=== PATIENT | female | born 1995 | race Caucasian/White ===

== ENCOUNTER 2019-07-30 15:35 | Emergency (ER) | payer OTHER ==
[2019-07-30 17:03] LABS: Basophils % 0.5 % (0-1.3)
[2019-07-30 17:05] LABS: Potassium 3.7 mmol/L (3.5-5.1)
[2019-07-30 17:13] LABS: Hematocrit 41.4 % (36.0-45.0); MPV 9.6 fL (7.6-11.3); RBC Red Blood Cell Count 4.71 M/uL (3.86-4.86)
[2019-07-30 17:23] LABS: Urine Bacteria >50 /HPF (<20); Urine RBC <5 /HPF (NONE SEEN)
[2019-07-30 17:24] LABS: Urine Culture Reflex Order REFLEXED; Urine Mucus MOD /HPF (NONE SEEN)
--- NOTE | 2019-07-30 17:32 | EDPHYS ---
Physician Documentation [facility] Name: Loulou Linton Age: 23 yrs Sex: Female : 1995 Arrival Date: 07/30/2019 Time: 15:40 Bed 14 Private MD: ED Physician Magnus Galeano HPI: 07/29 16:01 This 23 yrs old Female presents to ER via Ambulatory with complaints of Dehydrated, pm1 Weakness, possible . 16:01 The patient presents to the emergency department with weakness of the entire body, pm1 generalized weakness, low energy. Onset: The symptoms/episode began/occurred 1 week(s) ago. Context: occurred at home. Associated signs and symptoms: Pertinent negatives: altered mental status, dizziness, fever, headache, nausea, syncope, near-syncope, vomiting. Severity of symptoms: in the emergency department the symptoms have improved. The patient has not experienced similar symptoms in the past. The patient has not recently seen a physician, out of town. Patient presents to the ER with complaints of generalized weakness and low energy. She believes that she might be 16 weeks . She took a home test last week and it came back positive. Today the patient was walking in the kitchen and slipped on a wet spot, resulting in an small abrasion to left arguello. No pain elsewhere. No headache, head injury, nausea, or vomiting. Patient denies any dizziness, chest pain, near-syncope, or syncope to me. After she slipped she felt low in energy and just sat on the floor and was brought to the ER by her family for evaluation. Patient has not been drinking well today and feels that she is dehydrated. Historical: - Allergies: 15:52 SHELLFISH; ll1 - PSHx: 15:52 neck surgery-age 17, jaw surgery-19; ll1 - Immunization history:: Flu vaccine is not up to date. - Social history:: Smoking status: Patient denies any tobacco usage or history of. Patient/guardian denies using alcohol, street drugs, tobacco products. ROS: 16:01 Eyes: Negative for injury, pain, redness, and discharge. pm1 16:01 ENT: Negative for injury, pain, and discharge, Neck: Negative for injury, pain, and swelling, Cardiovascular: Negative for chest pain, palpitations, and edema, Respiratory: Negative for shortness of breath, cough, wheezing, and pleuritic chest pain, Abdomen/GI: Negative for abdominal pain, nausea, vomiting, diarrhea, and constipation, Back: Negative for injury and pain, : Negative for injury, bleeding, discharge, and swelling, MS/Extremity: Negative for injury and deformity. 16:01 Neuro: Negative for headache, weakness, numbness, tingling, and seizure. 16:01 Constitutional: Positive for fatigue, Poor PO intake today, Negative for fever. 16:01 Skin: Positive for abrasion(s), of the left arguello. Exam: 16:01 Constitutional: This is a well developed, well nourished patient who is awake, alert, pm1 and in no acute distress. Head/Face: Normocephalic, atraumatic. Chest/axilla: Normal chest wall appearance and motion. Nontender with no deformity. No lesions are appreciated. Cardiovascular: Regular rate and rhythm with a normal S1 and S2. No gallops, murmurs, or rubs. Normal PMI, no JVD. No pulse deficits. Respiratory: Lungs have equal breath sounds bilaterally, clear to auscultation and percussion. No rales, rhonchi or wheezes noted. No increased work of breathing, no retractions or nasal flaring. Abdomen/GI: Soft, non-tender, with normal bowel sounds. No distension or tympany. No guarding or rebound. No evidence of tenderness throughout. Back: No spinal tenderness. No costovertebral tenderness. Full range of motion. Skin: Warm, dry with normal turgor. Normal color with no rashes, no lesions, and no evidence of cellulitis. MS/ Extremity: Pulses equal, no cyanosis. Neurovascular intact. Full, normal range of motion. 16:01 Neuro: Exam negative for acute changes, Orientation: is normal, Mentation: is normal, Motor: is normal, moves all fours, Gait: is steady, at a normal pace, without difficulty. Vital Signs: 15:48 BP 117 / 84; Pulse 87; Resp 17; Temp 97.8; Pulse Ox 100% ; Weight 49.9 kg; Height 5 ft. ll1 1 in. (154.94 cm); Pain 3/10; 15:48 Body Mass Index 20.78 (49.90 kg, 154.94 cm) ll1 MDM: 15:54 Patient medically screened. pm1 17:30 Data reviewed: vital signs. Data interpreted: Pulse oximetry: on room air is 100 %. pm1 Interpretation: normal. 17:31 Counseling: I had a detailed discussion with the patient and/or guardian regarding: the pm1 historical points, exam findings, and any diagnostic results supporting the discharge/admit diagnosis, lab results, the need for outpatient follow up, to return to the emergency department if symptoms worsen or persist or if there are any questions or concerns that arise at home. 07/29 15:59 Order name: Basic Metabolic Panel; Complete Time: 17:05 pm1 07/29 15:59 Order name: CBC with Diff; Complete Time: 17:30 pm1 07/29 15:59 Order name: Urine Microscopic Only; Complete Time: 17:30 pm1 07/29 16:52 Order name: Quantitative Hcg; Complete Time: 17:30 pm1 07/29 17:26 Order name: Urine Culture [facility] 07/29 17:48 Order name: Urine Dipstick--Ancillary (enter results) em 07/29 15:59 Order name: Urine Test (obtain specimen); Complete Time: 16:55 pm1 07/29 15:59 Order name: IV Saline Lock; Complete Time: 16:55 pm1 07/29 15:59 Order name: Labs collected and sent; Complete Time: 16:55 pm1 07/29 15:59 Order name: NPO; Complete Time: 16:55 pm1 07/29 15:59 Order name: Urine Dipstick-Ancillary (obtain specimen); Complete Time: 16:55 pm1 07/29 17:48 Order name: Urine --Ancillary (enter results) em1 Administered Medications: 17:42 Drug: Rocephin 1 grams Route: IV; Rate: calculated rate; Site: right antecubital; vc 18:00 Follow up: Response: No adverse reaction; IV Status: Completed infusion; IV Intake: 20mlvc Disposition: 07/30 04:30 Co-signature as Attending Physician, Magnus Galeano MD I agree with the assessment and kdr plan of care. Disposition: 07/30/19 17:32 Discharged to Home. Impression: Urinary tract infection, site not specified. - Condition is Stable. - Discharge Instructions: Urinary Tract Infection, Adult. - Prescriptions for Macrobid 100 mg Oral Capsule - take 1 capsule by ORAL route every 12 hours for 10 days; 20 capsule. - Medication Reconciliation Form, Thank You Letter, Antibiotic Education, Prescription Opioid Use form. - Follow up: Emergency Department; When: As needed; Reason: Worsening of condition. Follow up: Private Physician; When: 2 - 3 days; Reason: Recheck today's complaints, Continuance of care, Re-evaluation by your physician. - Problem is new. - Symptoms have improved. Signatures: Dispatcher [employer] EDMS Magnus Galeano MD MD kdr Joe Silva COOKING CHEF COOKING CHEF pm1 Nani Guadrado RN RN Willian Morales RN RN ll1 Corrections: (The following items were deleted from the chart) 07/29 18:08 17:32 07/30/2019 17:32 Discharged to Home. Impression: Urinary tract infection, site vc not specified. Condition is Stable. Forms are Medication Reconciliation Form, Thank You Letter, Antibiotic Education, Prescription Opioid Use. Follow up: Emergency Department; When: As needed; Reason: Worsening of condition. Follow up: Private Physician; When: 2 - 3 days; Reason: Recheck today's complaints, Continuance of care, Re-evaluation by your physician. Problem is new. Symptoms have improved. pm1
--- NOTE | 2019-07-30 17:32 | ER ---
Nurse's Notes [facility] Name: Loulou Linton Age: 23 yrs Sex: Female : 1995 Arrival Date: 07/30/2019 Time: 15:40 Bed 14 Private MD: Diagnosis: Urinary tract infection, site not specified Presentation: 07/29 15:48 Chief complaint: Patient states: States she felt dizzy, near syncope today. Slipped on ll1 wet ground. States she hasn't drank well today, but ate a little. Found out she was last week. 14-16 weeks she guesses. No vaginal bleeding. G2, P0. Coronavirus screen: Proceed with normal triage. Patient denies a cough. Patient denies shortness of breath or difficulty breathing. Patient denies measured and/or subjective temperature greater than 100.4F prior to today's visit. Patient denies travel on a cruise ship or to a country the [facility] [place]NOTE 2[place] currently lists as an affected area. Patient denies contact with known and/or suspected case of COVID-19. Ebola Screen: Patient denies travel to an Ebola-affected area in the 21 days before illness onset. Initial Sepsis Screen: Does the patient meet any 2 criteria? No. Patient's initial sepsis screen is negative. Risk Assessment: Do you want to hurt yourself or someone else? Patient reports no desire to harm self or others. Onset of symptoms was July 30, 2019. 15:48 Method Of Arrival: Ambulatory ll1 15:48 Acuity: KURT 3 ll1 16:00 Initial Sepsis Screen: Does the patient have a suspected source of infection? No. vc Patient's initial sepsis screen is negative. Triage Assessment: 16:00 General: Appears in no apparent distress. uncomfortable, Behavior is calm, cooperative, vc appropriate for age. Historical: - Allergies: 15:52 SHELLFISH; ll1 - PSHx: 15:52 neck surgery-age 17, jaw surgery-19; ll1 - Immunization history:: Flu vaccine is not up to date. - Social history:: Smoking status: Patient denies any tobacco usage or history of. Patient/guardian denies using alcohol, street drugs, tobacco products. Screenin:00 Abuse screen: Denies threats or abuse. Nutritional screening: No deficits noted. vc Tuberculosis screening: No symptoms or risk factors identified. Fall Risk None identified. Assessment: 16:00 General: Appears in no apparent distress. comfortable, slender, Behavior is calm, vc cooperative, appropriate for age. Pain: Denies pain. Neuro: Level of Consciousness is awake, alert, obeys commands, Oriented to person, place, time, Reports weakness. Cardiovascular: Capillary refill < 3 seconds Patient's skin is warm and dry. Respiratory: Airway is patent Respiratory effort is even, unlabored, Respiratory pattern is regular, symmetrical. GI: No signs and/or symptoms were reported involving the gastrointestinal system. : No signs and/or symptoms were reported regarding the genitourinary system. Derm: Skin is intact, is healthy with good turgor. 17:00 Reassessment: Patient appears in no apparent distress at this time. Patient and/or vc family updated on plan of care and expected duration. Pain level reassessed. Patient is alert, oriented x 3, equal unlabored respirations, skin warm/dry/pink. 17:42 Reassessment: 15 minute shot time prior to discharge. vc 18:00 Reassessment: Patient appears in no apparent distress at this time. Patient and/or vc family updated on plan of care and expected duration. Pain level reassessed. Patient is alert, oriented x 3, equal unlabored respirations, skin warm/dry/pink. Patient denies pain at this time. Vital Signs: 15:48 BP 117 / 84; Pulse 87; Resp 17; Temp 97.8; Pulse Ox 100% ; Weight 49.9 kg; Height 5 ft. ll1 1 in. (154.94 cm); Pain 3/10; 15:48 Body Mass Index 20.78 (49.90 kg, 154.94 cm) ll1 ED Course: 15:40 Patient arrived in ED. bp1 15:51 Triage completed. ll1 15:52 Arm band placed on Patient placed in an exam room, on a stretcher. ll1 15:53 Joe Silva NP is PHCP. pm1 15:53 Magnus Galeano MD is Attending Physician. pm1 16:00 Patient has correct armband on for positive identification. Bed in low position. Call vc light in reach. 16:55 Nani Guardado, COLT is Primary Nurse. vc 18:08 No provider procedures requiring assistance completed. IV discontinued, intact, vc bleeding controlled, No redness/swelling at site. Pressure dressing applied. Administered Medications: 17:42 Drug: Rocephin 1 grams Route: IV; Rate: calculated rate; Site: right antecubital; vc 18:00 Follow up: Response: No adverse reaction; IV Status: Completed infusion; IV Intake: 20mlvc Intake: 18:00 IV: 20ml; Total: 20ml. vc Outcome: 17:32 Discharge ordered by MD. pm1 18:08 Patient left the ED. vc 18:08 Discharged to home ambulatory. vc 18:08 Condition: good 18:08 Discharge instructions given to patient, Instructed on discharge instructions, follow up and referral plans. medication usage, Demonstrated understanding of instructions, follow-up care, medications, Prescriptions given X 1. Addendum: 08/02/2019 17:33 Addendum: Culture Results: Positive urine culture. No further action required. Bacteria i w sensitive to prescribed antibiotic. Signatures: Debbi Byrd RN RN iw Joe Silva NP COMPRESSOR BATTERY PELLETS pm1 Nani Guardado RN RN vc Lewis, Lynsay, RN RN ll1 Jenise Conte [facility]
[2019-07-30] MEDS ORDERED: CEFTRIAXONE/SWI 1gm 1 GM/10 ML SYR ONE (17:45)
[2019-07-30 18:13] VITALS: BP 117/84; TEMP 97.8; O2SAT 100
[2019-07-30 18:19] LABS: Urine Blood TRACE (NEG); Urine Glucose NEGATIVE (NEG); Urine Protein 2+ (NEG); Urine Specific Gravity 1.025 (1.005-1.030)
== END 2019-07-30 18:08 | disposition home or self-care (01) ==
LOC: ER 15:35
DX: N39.0 Urinary tract infection, site not specified (principal); Z91.013 Allergy to seafood
CPT/HCPCS: 96365; 87088; 85025; 87086; 80048; 36415; 81025; 84702; 87077; 87186; 99283; J0696; 81003; 81015

== ENCOUNTER 2021-08-20 07:49 | Emergency (ER) | payer SELFPAY ==
--- NOTE | 2021-08-20 09:59 | ER ---
Nurse's Notes [facility] Name: Loulou Linton Age: 25 yrs Sex: Female : 1995 Arrival Date: 08/20/2021 Time: 07:51 Bed 12 Private MD: Diagnosis: Influenza due to identified novel influenza A virus Presentation: 08/20 07:55 Chief complaint: Patient states: she has been having a sore throat since Thursday. ap3 Patient states she was at the beach over the weekend, swallowed a lot of ocean water, vomited a few times, and started feeling worse Thursday night. Patient presents to the ED because she hasn't started feeling any better, and she has been running fever off and on since Thursday08/18/21. Coronavirus screen: congestion, cough unrelated to allergies, fatigue, fever. Ebola Screen: No symptoms or risks identified at this time. Initial Sepsis Screen: Does the patient meet any 2 criteria? HR > 90 bpm. Does the patient have a suspected source of infection? No. Patient's initial sepsis screen is negative. Risk Assessment: Do you want to hurt yourself or someone else? Patient reports no desire to harm self or others. Onset of symptoms was August 18, 2021. 07:55 Method Of Arrival: Ambulatory ap3 07:55 Acuity: KURT 4 ap3 Triage Assessment: 07:58 General: Appears uncomfortable, Behavior is calm, cooperative. Pain: Complains of pain ap3 in throat and generalized body aches. Neuro: Level of Consciousness is awake, alert, obeys commands, Oriented to person, place, time. Cardiovascular: Patient's skin is warm and dry. Respiratory: Airway is patent Respiratory effort is even, unlabored, Respiratory pattern is regular, symmetrical. GI: Reports nausea, vomiting. 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 - Social history:: Smoking status: Reported history of juuling and/or vaping. Screenin:59 Abuse screen: Denies threats or abuse. Nutritional screening: No deficits noted. ap3 Tuberculosis screening: No symptoms or risk factors identified. Fall Risk None identified. Assessment: 10:27 Reassessment: Patient appears in no apparent distress at this time. Patient and/or ss family updated on plan of care and expected duration. Pain level reassessed. Patient is alert/active/playful, equal unlabored respirations, skin warm/dry/pink. Vital Signs: 07:55 BP 104 / 68; Pulse 100; Resp 19; Temp 98.7; Pulse Ox 97% ; Weight 52.16 kg; Height 5 ap3 ft. 2 in. (157.48 cm); 07:55 Body Mass Index 21.03 (52.16 kg, 157.48 cm) ap3 ED Course: 07:51 Patient arrived in ED. mr 07:58 Triage completed. ap3 07:59 Arm band placed on right wrist. ap3 08:06 Jul[facility] Magallanes [facility]C [facility] kb 08:06 Bhupinder Wright MD is Attending Physician. kb 10:27 Janessa Daley, COLT is Primary Nurse. ss 10:27 Patient has correct armband on for positive identification. ss 10:27 No provider procedures requiring assistance completed. Patient did not have IV access ss during this emergency room visit. Administered Medications: No medications were administered Outcome: 09:58 Discharge ordered by . kb 10:27 Discharged to home ambulatory. ss 10:27 Condition: good 10:27 Discharge instructions given to patient, family, Instructed on discharge instructions, follow up and referral plans. medication usage, Demonstrated understanding of instructions, follow-up care, medications, Prescriptions given X 1. 10:28 Patient left the ED. ss Signatures: Juliane Magallanes FNP-C FNP-Diana Adrienne Paz mr Janessa Daley, RN RN ss Kate Hughes RN RN ap3
--- NOTE | 2021-08-20 09:59 | EDPHYS ---
Physician Documentation [facility] Name: Loulou Linton Age: 25 yrs Sex: Female : 1995 Arrival Date: 08/20/2021 Time: 07:51 Bed 12 Private MD: ED Physician Bhupinder Wright HPI: 08/20 08:20 This 25 yrs old Female presents to ER via Ambulatory with complaints of Fever, Vomiting.kb 08:20 The patient or guardian reports cough, that is intermittent, described as mild, flu kb symptoms, low-grade fever, myalgias. Onset: The symptoms/episode began/occurred 4 day(s) ago. Severity of symptoms: At their worst the symptoms were moderate, in the emergency department the symptoms are unchanged. Modifying factors: The symptoms are alleviated by nothing, the symptoms are aggravated by nothing. Associated signs and symptoms: Pertinent positives: fever, nausea, rhinorrhea, sore throat, vomiting. The patient has not experienced similar symptoms in the past. The patient has not recently seen a physician. Pt reports she started feeling sick on Thursday, went to the beach on Thursday and swallowed a lot of water, started vomiting Thursday night. Reports sore throat, cough, congestion, fever, n/v. 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 - Social history:: Smoking status: Reported history of juuling and/or vaping. ROS: 08:18 Cardiovascular: Negative for chest pain, palpitations, and edema. kb 08:18 Constitutional: Positive for fatigue, fever, malaise. 08:18 ENT: Positive for sinus congestion, sore throat. 08:18 Respiratory: Positive for cough. 08:18 Abdomen/GI: Positive for nausea and vomiting. 08:18 All other systems are negative. Exam: 08:18 Constitutional: This is a well developed, well nourished patient who is awake, alert, kb and in no acute distress. Head/Face: Normocephalic, atraumatic. Cardiovascular: Regular rate and rhythm with a normal S1 and S2. No gallops, murmurs, or rubs. No pulse deficits. Respiratory: Respirations even and unlabored. No increased work of breathing. Talking in full sentences Abdomen/GI: Soft, non-tender. No distention Skin: Warm, dry with normal turgor. Normal color. MS/ Extremity: Pulses equal, no cyanosis. Neurovascular intact. Full, normal range of motion. Neuro: Awake and alert, GCS 15, oriented to person, place, time, and situation. Moves all extremities. Normal gait. Psych: Awake, alert, with orientation to person, place and time. Behavior, mood, and affect are within normal limits. 08:18 ENT: Posterior pharynx: Airway: normal, no evidence of obstruction, Tonsils: are normal in appearance, Uvula: normal, midline, swelling, is not appreciated, erythema, that is moderate, exudate, is not appreciated. Vital Signs: 07:55 BP 104 / 68; Pulse 100; Resp 19; Temp 98.7; Pulse Ox 97% ; Weight 52.16 kg; Height 5 ap3 ft. 2 in. (157.48 cm); 07:55 Body Mass Index 21.03 (52.16 kg, 157.48 cm) ap3 MDM: 08:08 Data reviewed: vital signs, nurses notes. Data interpreted: Pulse oximetry: on room air kb is 97 %. Interpretation: normal. 08:12 Patient medically screened. kb 09:58 Counseling: I had a detailed discussion with the patient and/or guardian regarding: the kb historical points, exam findings, and any diagnostic results supporting the discharge/admit diagnosis, lab results, the need for outpatient follow up, a family practitioner, to return to the emergency department if symptoms worsen or persist or if there are any questions or concerns that arise at home. 08/20 08:08 Order name: Flu; Complete Time: 08:36 ap3 08/20 08:08 Order name: Strep; Complete Time: 08:36 ap3 08/20 08:08 Order name: COVID-19 SARS RT PCR (Document "Date of Onset" if Symptomatic); Complete ap3 Time: 09:57 08/20 08:08 Order name: Flu kb 08/20 08:08 Order name: Strep kb 08/20 08:08 Order name: COVID-19 SARS RT PCR (Document "Date of Onset" if Symptomatic) kb 08/20 08:36 Order name: Throat Culture EDMS Administered Medications: No medications were administered Disposition: 18:48 Co-signature as Attending Physician, Bhupinder Wright MD. rn Disposition Summary: 08/20/21 09:58 Discharge Ordered Location: Home kb Condition: Stable kb Diagnosis - Influenza due to identified novel influenza A virus kb Followup: kb - With: Private Physician - When: 2 - 3 days - Reason: Recheck today's complaints, Continuance of care, Re-evaluation by your physician Followup: kb - With: Emergency Department - When: As needed - Reason: Worsening of condition Discharge Instructions: - Discharge Summary Sheet kb - Influenza, Adult, [id number] kb Forms: - Medication Reconciliation Form kb - Thank You Letter kb - Antibiotic Education kb - Prescription Opioid Use kb Prescriptions: - Zofran 4 mg Oral Tablet - take 1 tablet by ORAL route every 6 hours As needed; 20 tablet; Refills: 0, kb Product Selection Permitted Signatures: Dispatcher [employer] EDHI Juliane Magallanes, FRAME REPAIRER-C FRAME REPAIRER-Ckb Bhupinder Wright MD MD rn Kate Hughes RN RN ap3
[2021-08-20 10:54] VITALS: BP 104/68; TEMP 98.7; O2SAT 97
== END 2021-08-20 10:28 | disposition home or self-care (01) ==
LOC: ER 07:49
DX: J10.1 Influenza due to other identified influenza virus with other respiratory manifestations (principal); R50.9 Fever, unspecified; R11.10 Vomiting, unspecified; R05.9 Cough, unspecified; Z20.822 Contact with and (suspected) exposure to COVID-19; Z91.013 Allergy to seafood
CPT/HCPCS: 87070; 87081; 87804; 99282; U0003